=== PATIENT | female | born 1980 | race Caucasian/White ===

== ENCOUNTER 2021-12-17 08:54 | Outpatient (CLI) | payer BC, MEDICAID, SELFPAY ==
--- NOTE | 2021-12-17 09:01 | US_ITS ---
WS: [id number] OBSTETRICAL ULTRASOUND COMPLETE HISTORY: ANATOMY/ELDERLY MULTIGRAVIDA 2ND TRIMESTER COMPARISON: 10/02/2021 Single intrauterine gestation in Cephalic presentation. Cervix is Closed and normal length. Cervical length is 4.0 cm. Normal amount of amniotic fluid surrounds the fetus. Placenta: Anterior, no previa or abruption. Placenta grade 1 Heart: 150 BPM. Four chambers are identified. RIGHT and LEFT outflow tracts are unremarkable. Anatomy: Intracranial structures are negative. Spine is poorly visualized due to posterior position t hroughout the examination. kidneys, stomach and urinary bladder are unremarkable. Abdominal wal l, three-vessel cord and cord insertion site are normal. 4 extremities are present. profile: Unremarkable. Gender: Female. measurements: BPD = 6.0 cm = 24w3d HC = 22.7 cm = 24w5d AC = 18.9 cm = 23w5d FL = 4.5 cm = 24w5d EFW: 669 g. Biometry is internally concordant. AGA by ultrasound: 24w4d TIAGO by ultrasound: 04/04/2022 US/US OB >= 14 weeks fetus [id number] IMPRESSION: 1. Single intrauterine gestation of 24w4d with an TIAGO of 04/04/2022. Appropria te growth since the prior ultrasound. 2. Limited visualization of the spine due to its posterior position thro ughout the examination. Otherwise anatomy is normal.
== END 2021-12-17 08:55 | disposition home or self-care (01) ==
LOC: RAD 08:56
PROVIDERS: Visit Provider Family Medicine
DX: Z34.82 Encounter for supervision of other normal pregnancy, second trimester (principal); O09.522 Supervision of elderly multigravida, second trimester; O99.332 Smoking (tobacco) complicating pregnancy, second trimester
CPT/HCPCS: 76805

== ENCOUNTER 2021-12-29 19:48 | Outpatient (CLI) | payer BC, MEDICAID, SELFPAY ==
[2021-12-29 19:50] VITALS: BMI 25.5
[2021-12-29 20:02] VITALS: BP 103/59; PULSE 91; TEMP 35.9
[2021-12-29 20:30] VITALS: BP 108/58; PULSE 86
[2021-12-29 20:31] VITALS: TEMP 35.8
[2021-12-29 20:50] VITALS: BP 108/58; PULSE 86; RESP 16; TEMP 35.8
== END 2021-12-29 20:50 | disposition home or self-care (01) ==
LOC: OPOB 19:49 → OBGYN 19:51
PROVIDERS: Visit Provider Pediatrics
DX: O36.8190 Decreased fetal movements, unspecified trimester, not applicable or unspecified (principal); Z3A.00 Weeks of gestation of pregnancy not specified
CPT/HCPCS: 99211

== ENCOUNTER 2022-01-24 06:43 | Outpatient (CLI) | payer BC, MEDICAID, SELFPAY ==
--- NOTE | 2022-01-24 | US_ITS ---
WS: [id number] LIMITED OBSTETRICAL ULTRASOUND HISTORY: GROWTH AND SPINE COMPARISON: 12/17/2021, 10/02/2021 Presentation: Vertex. Cervix: Closed and normal length. Placenta: Anterior, no previa or abruption. Grade: 1 spine: Additional imaging is performed. Only a very few images are submitted. There is no abnor mality identified. No splaying of the lamina. HEART: FHR of 141 BPM. measurements: BPD = 7.3 cm = 29w1d; 23rd percentile. HC = 27.0 cm = 29w3d; 11th percentile. AC = 23.7 cm = 28w0d; 6th percentile. FL = 5.4 cm = 28w4d; 11th percentile. ROMAN: 10.7 cm EFW: 1225 g; 32nd %. AGA by ultrasound: 28w6d TIAGO by ultrasound: 04/12/2022 US/[place] [id number] IMPRESSION: 1. Single intrauterine gestation of 28 weeks 6 days with an EDC of 04/12/2022. Appropriate growth since the first trimester ultrasound. 2. Abdominal circumference at the 6th percentile for age. May represent early IUGR. 3. Additional imaging of the spine is negative although only a few image s are submitted.
== END 2022-01-24 06:44 | disposition home or self-care (01) ==
LOC: RAD 06:43
PROVIDERS: Visit Provider Family Medicine
DX: O09.522 Supervision of elderly multigravida, second trimester (principal); Z3A.25 25 weeks gestation of pregnancy
CPT/HCPCS: 76816

== ENCOUNTER 2022-02-21 16:08 | Outpatient (CLI) | payer BC, MEDICAID, SELFPAY ==
[2022-02-21 16:52] LABS: Basophils # 0.1 10^3/uL (0.0-0.1); Basophils % 0.4 %; Eosinophils # 0.1 10^3/uL (0.0-0.8); Eosinophils % 0.7 %; Hematocrit 28.1 % (37.0-47.0); Hemoglobin 9.1 g/dL (11.5-15.3); Lymphocytes # 3.2 10^3/uL (0.8-4.8); Lymphocytes % 16.3 %; Mean Corpuscular HGB Conc 32.4 g/dL (30.0-36.0); Mean Corpuscular Hemoglobin 29.3 pg (28.0-34.0); Mean Corpuscular Volume 90.4 fl (81-99); Mean Platelet Volume 9.8 fL (7.4-10.4); Monocytes # 0.6 10^3/uL (0.2-0.9); Monocytes % 3.2 %; Neutrophils # 15.56 10^3/uL (1.8-7.7); Neutrophils % 78.7 %; Nucleated Red Blood Cells % 0 %; Platelet Count 350 10^3/cmm (130-400); Red Blood Count 3.11 10^6/uL (4.1-5.3); Red Cell Distribution Width 13.9 % (12.1-15.1); White Blood Count 19.8 10^3/uL (4.0-10.0)
[2022-02-21 17:37] LABS: LAB Peripheral Smear Sent for Review
== END 2022-02-21 16:09 | disposition home or self-care (01) ==
PROVIDERS: Visit Provider Family Medicine
DX: D72.829 Elevated white blood cell count, unspecified (principal)
CPT/HCPCS: 36415; 80503; 85025

== ENCOUNTER 2022-02-22 10:43 | Outpatient (CLI) | payer BC, MEDICAID, SELFPAY ==
[2022-02-22 10:55] VITALS: BP 100/57; PULSE 76
[2022-02-22 11:11] VITALS: RESP 16
--- NOTE | 2022-02-22 11:11 | USR_ITS ---
PROCEDURE INFORMATION: Exam: US Biophysical Profile Without Non-Stress Test Exam date and time: 02/22/2022 11:36 AM Age: 41 years old Clinical indication: Screening exam; Routine US screening of fetus; Third trimester (=28 weeks 0 days); ; Additional info: Nst TECHNIQUE: Imaging protocol: US biophysical profile without non-stress testing. COMPARISON: US OB >= 14 weeks fetus [id number] 12/17/2021 9:22 AM FINDINGS: heart rate: 133 bpm Presentation: Cephalic Placenta: Anterior placenta without previa. Amniotic fluid: Amniotic fluid volume is normal. Amniotic fluid index: ROMAN is 14.5 cm. BIOPHYSICAL PROFILE: breathing movement (BPP): 2/2 body movement (BPP): 2/2 tone (BPP): 2/2 Amniotic fluid (BPP): 2/2 Biophysical profile score (BPP): 03/03 MATERNAL ANATOMY: Cervix: Cervical length measures 4.3 cm. US/US OB BPP wo NST [id number] IMPRESSION: Unremarkable biophysical profile. 03/03.
[2022-02-22 11:21] VITALS: BMI 28.3
[2022-02-22 11:54] VITALS: BP 119/66; PULSE 75
[2022-02-22 12:01] VITALS: BP 119/66; PULSE 75
== END 2022-02-22 12:02 | disposition home or self-care (01) ==
LOC: OPOB 10:43 → OBGYN 10:46
PROVIDERS: Visit Provider Family Medicine
DX: O26.899 Other specified pregnancy related conditions, unspecified trimester (principal); Z3A.00 Weeks of gestation of pregnancy not specified
CPT/HCPCS: 59025; 76819; 99211

== ENCOUNTER 2022-03-13 07:58 | Oncology outpatient (recurring) (ONCR) | payer BC, MEDICAID, SELFPAY ==
[2022-03-13 09:14] LABS: Basophils # 0.1 10^3/uL (0.0-0.1); Basophils % 0.5 %; Eosinophils # 0.2 10^3/uL (0.0-0.8); Eosinophils % 1.6 %; Hematocrit 26.8 % (37.0-47.0); Hemoglobin 8.3 g/dL (11.5-15.3); Lymphocytes # 3.2 10^3/uL (0.8-4.8); Lymphocytes % 21.7 %; Mean Corpuscular Hemoglobin 28.8 pg (28.0-34.0); Mean Corpuscular Volume 93.1 fl (81-99); Mean Platelet Volume 9.8 fL (7.4-10.4); Monocytes # 0.7 10^3/uL (0.2-0.9); Monocytes % 4.8 %; Neutrophils # 10.29 10^3/uL (1.8-7.7); Neutrophils % 70.8 %; Nucleated Red Blood Cells % 0 %; Platelet Count 343 10^3/cmm (130-400); Red Blood Count 2.88 10^6/uL (4.1-5.3); Red Cell Distribution Width 14.6 % (12.1-15.1); White Blood Count 14.5 10^3/uL (4.0-10.0)
[2022-03-13 09:42] LABS: LAB Peripheral Smear Sent for Review
[2022-03-13 09:50] LABS: Alanine Aminotransferase 31 U/L (0-33); Albumin Level 2.9 g/dL (3.5-5.2); Alkaline Phosphatase 272 U/L (35-105); Anion Gap 15.7 (5-19); Aspartate Amino Transferase 19 U/L (0-32); Blood Urea Nitrogen 6 mg/dL (6-20); Calcium 8.5 mg/dL (8.5-10.5); Carbon Dioxide 25 mmol/L (22-29); Chloride 101 mmol/L (98-107); Globulin 2.6 g/dL (1.3-4.6); Glomerular Filtration Rate 110.7 mL/min (90-130); Glucose 73 mg/dL (65-115); Iron 26 ug/dL (37-145); Lactate Dehydrogenase 159 U/L (135-214); Osmolality Calculated 282 mOsm/kg (285-295); Potassium 3.7 mmol/L (3.5-5.1); Sodium 138 mmol/L (136-145); Total Bilirubin 0.2 mg/dL (0.15-1.2); Total Iron Binding Capacity 520 mcg/dl; Total Protein 5.5 g/dL (6.6-8.7); Unsaturated Iron Binding 494 ug/dL (112-347)
[2022-03-14 09:28] LABS: PROTEIN, TOTAL 5.4 g/dL (6.1-8.1)
[2022-03-14 12:22] LABS: KAPPA LIGHT CHAIN, FREE, SERUM 26.7 mg/L (3.3-19.4); KAPPA/LAMBDA LIGHT CHAINS FREE 1.44 (0.26-1.65); LAMBDA LIGHT CHAIN, FREE, SERU 18.6 mg/L (5.7-26.3)
[2022-03-17 16:21] LABS: ALBUMIN 2.4 g/dL (3.8-4.8); ALPHA 1 GLOBULIN 0.4 g/dL (0.2-0.3); ALPHA 2 GLOBULIN 0.9 g/dL (0.5-0.9); BETA 1 GLOBULIN 0.6 g/dL (0.4-0.6); BETA 2 GLOBULIN 0.3 g/dL (0.2-0.5); GAMMA GLOBULIN 0.8 g/dL (0.8-1.7)
== END 2022-03-26 23:59 | disposition home or self-care (01) ==
PROVIDERS: Visit Provider Internal Medicine Medical Oncology
DX: O99.019 Anemia complicating pregnancy, unspecified trimester (principal); D72.829 Elevated white blood cell count, unspecified
CPT/HCPCS: 36415; 80053; 83540; 83550; 83615; 83883; 84155; 84165; 85025; 88374; 99205